=== PATIENT | male | born 1990 | race Caucasian/White ===

== ENCOUNTER → 2017-12-24 | Emergency (ER) | payer OTHER ==
[~2017-12-24] VITALS: Ht 167.6 cm; Wt 61.2 kg
[~2017-12-24] MED LIST: LEVSIN/SL0.125 MG SL; ORASEP SPRAY30 ML MM; PHENAGIL CH TA1 EACH PO
== END | disposition home or self-care (01) ==
LOC: ER 23:22
DX: R10.33 Periumbilical pain (principal); J06.9 Acute upper respiratory infection, unspecified

== ENCOUNTER 2018-07-30 21:15 | Emergency (ER) | payer OTHER ==
[~2018-07-30] VITALS: Ht 167.6 cm; Wt 63.5 kg
[2018-07-30] MEDS ORDERED: OMEGA-31000 MG (21:41)
== END 2018-07-31 00:44 | disposition home or self-care (01) ==
LOC: ER 21:15
DX: M54.89 Other dorsalgia (principal); M79.18 Myalgia, other site

== ENCOUNTER 2019-07-25 08:05 | Outpatient (CLI) | payer OTHER ==
[~2019-07-25 08:05] MED LIST changes: +OMEGA-31000 MG
== END 2019-07-25 08:06 | disposition home or self-care (01) ==
LOC: SONOGRAMA 08:05
DX: E04.1 Nontoxic single thyroid nodule (principal)

== ENCOUNTER 2019-08-19 21:37 | Emergency (ER) | payer OTHER ==
[~2019-08-19] VITALS: Ht 167.6 cm; Wt 63.5 kg
[2019-08-19] MEDS ORDERED: PEPCID AC20 MG PO (21:45)
[2019-08-19] MEDS ORDERED: ZYRTEC10 MG PO (21:46)
== END 2019-08-19 23:54 | disposition home or self-care (01) ==
LOC: ER 21:37
DX: R53.1 Weakness (principal)

== ENCOUNTER 2023-03-30 09:21 | Outpatient (CLI) | payer OTHER ==
[~2023-03-30 09:21] MED LIST changes: +PEPCID AC20 MG PO; +ZYRTEC10 MG PO
== END 2023-03-30 09:22 | disposition home or self-care (01) ==
LOC: NUCLEAR 09:21
PROVIDERS: ATTEND Internal Medicine
DX: I65.29 Occlusion and stenosis of unspecified carotid artery (principal)

== ENCOUNTER 2023-04-25 07:21 | Outpatient (CLI) | payer OTHER | END 2023-04-25 07:23 | disposition home or self-care (01) | LOC: NUCLEAR 07:21 | PROVIDERS: ATTEND Internal Medicine | DX: I25.10 Atherosclerotic heart disease of native coronary artery without angina pectoris (principal) ==

== ENCOUNTER → 2024-03-17 | Emergency (ER) | payer OTHER ==
[~2024-03-17] VITALS: Ht 167.6 cm; Wt 64.4 kg
== END | disposition left against medical advice (07) ==
LOC: ER 23:07
DX: Z53.21 Procedure and treatment not carried out due to patient leaving prior to being seen by health care provider (principal)